=== PATIENT | female | born 1970 | race Caucasian/White ===

== ENCOUNTER 2017-03-16 12:48 | Emergency (ER) | payer BC ==
[2017-03-16 12:48] VITALS: BMI 26.6
[2017-03-16 14:16] VITALS: PULSE 75; RESP 20; TEMP 98; O2SAT 99
--- NOTE | 2017-03-16 14:30 | ED PDOC ---
Arrival/HPI - General Historian: Patient - History of Present Illness Time/Duration: > week (2-3) - General Chief Complaint: Abnormal Skin Integrity Time Seen by Provider: 03/16/17 14:01 - History of Present Illness Narrative History of Present Illness (Text): 03/16/17 14:33 47-year-old female presents today with a rash the past 2 weeks. Patient states the rash started on the back and has spread to the abdomen and lower legs. She denies fevers or chills. She is complaining of pruritus. Denies dizziness or weakness. No medications have been taken for pain at home. Patient denies any other family members with similar symptoms. No vomiting or diarrhea. Denies pain. No other complaints (Janie Claros) Past Medical History - Provider Review Nursing Documentation Reviewed: Yes - Travel History Have you recently traveled outside [place] w/in the past 3 mons?: No - Infectious Disease Hx of Infectious Diseases: None - Tetanus Immunization Tetanus Immunization: Unknown - Reproductive Menopause: No - Past Medical History Past Medical History: No Previous - Pulmonary Hx Bronchitis: Yes - Psychiatric Hx Depression: No Hx Emotional Abuse: No Hx Physical Abuse: No Hx Substance Use: No - Surgical History Hx Orthopedic Surgery: Yes (MOR IN RIGHT LEG) Other/Comment: back fusion, right shoulder repair - Anesthesia Hx Anesthesia: Yes Hx Anesthesia Reactions: No Hx Malignant Hyperthermia: No - Suicidal Assessment Feels Threatened In Home Enviroment: No Family/Social History - Physician Review Nursing Documentation Reviewed: Yes Family/Social History: Unknown Family HX Smoking Status: Current Some Days Smoker Hx Alcohol Use: Yes Frequency of alcohol use: Few days per week Hx Substance Use: No Hx Substance Use Treatment: No Allergies/Home Meds Allergies/Adverse Reactions: Allergies aspirin Adverse Reaction (Verified 03/16/17 13:14) RASH ibuprofen [From Motrin] Adverse Reaction (Verified 03/16/17 13:14) RASH Home Medications: Home Meds Medication Instructions Recorded Confirmed Breathing Inhaler 1 puff INH BID PRN 03/16/17 03/16/17 Review of Systems - Review of Systems Constitutional: absent: Fatigue, Fevers Respiratory: absent: SOB, Cough Cardiovascular: absent: Chest Pain, Palpitations Gastrointestinal: absent: Abdominal Pain, Nausea, Vomiting Genitourinary Female: absent: Dysuria Musculoskeletal: absent: Arthralgias, Back Pain, Neck Pain Skin: Rash, Pruritis Neurological: absent: Headache, Dizziness Psychiatric: absent: Anxiety, Depression Physical Exam Vital Signs Reviewed: Yes Temperature: Afebrile Blood Pressure: Normal Pulse: Regular Respiratory Rate: Normal Appearance: Positive for: Well-Appearing, Non-Toxic, Comfortable Pain Distress: None Mental Status: Positive for: Alert and Oriented X 3 - Systems Exam Head: Present: Atraumatic Mouth: Present: Moist Mucous Membranes Neck: Present: Normal Range of Motion Respiratory/Chest: Present: Clear to Auscultation, Good Air Exchange. No: Respiratory Distress, Accessory Muscle Use Cardiovascular: Present: Regular Rate and Rhythm, Normal S1, S2. No: Murmurs Abdomen: No: Tenderness Upper Extremity: Present: Normal ROM Lower Extremity: Present: Normal ROM Neurological: Present: GCS=15, Speech Normal Skin: Present: Warm, Dry, Rashes (Multiple erythematous scaly plaques on the arms posterior elbows, lower back, abdomen and bilateral lower legs), Normal Color Psychiatric: Present: Alert, Oriented x 3 Medical Decision Making ED Course and Treatment: 03/16/17 14:35 Patient is nontoxic well-appearing in no distress with stable vital signs no angioedema. Lungs are clear to auscultation bilaterally there is no wheezing noted. The airway is patent Benadryl Prednisone Pepcid Patient reassessment: After medications patient is feeling better after medications. Advised patient of my concern for psoriasis. Advised to follow-up with motor coach chauffeur as soon as possible. I advised taking Benadryl every 6 hours as needed for itch as well as prednisone daily x4 days. Advised patient to follow up with primary care physician within the next 2 days and return if symptoms worsen persist or if new symptoms develop Patient verbalizes understanding of discharge instructions and need for immediate followup. all aspects of this case were discussed the attending of record. Impression : Rash Benadryl every 6 hours as needed for itch Prednisone once daily x4 days Pepcid one tablet daily Follow up with the primary care physician within the next 2 days Follow up with the Belt Sander within the next 2 days. Return if symptoms worsen persist or if new symptoms develop: Shortness of breath, feeling of throat closing, difficulty speaking or any other concerning symptoms develop (Janie Claros) - Medication Orders Current Medication Orders: Discontinued Medications Diphenhydramine HCl (Benadryl) 25 mg PO ONCE ONE Stop: 03/16/17 14:02 Last Admin: 03/16/17 14:13 Dose: 25 mg Famotidine (Pepcid) 20 mg PO STAT STA Stop: 03/16/17 14:02 Last Admin: 03/16/17 14:15 Dose: 20 mg Prednisone (Prednisone Tab) 60 mg PO STAT ONE Stop: 03/16/17 14:02 Last Admin: 03/16/17 14:15 Dose: 60 mg Disposition/Present on Arrival - Present on Arrival Any Indicators Present on Arrival: No History of DVT/PE: No History of Uncontrolled Diabetes: No Urinary Catheter: No History of Decub. Ulcer: No History Surgical Site Infection Following: None - Disposition Have Diagnosis and Disposition been Completed?: Yes Disposition Time: 14:10 Patient Plan: Discharge - Disposition Diagnosis: Rash Disposition: HOME/ ROUTINE Condition: GOOD Discharge Instructions (ExitCare): Acute Rash (ED) Additional Instructions: Benadryl every 6 hours as needed for itch Prednisone once daily x4 days Pepcid one tablet daily Follow up with the primary care physician within the next 2 days Follow up with the Belt Sander within the next 2 days. Return if symptoms worsen persist or if new symptoms develop: Shortness of breath, feeling of throat closing, difficulty speaking or any other concerning symptoms develop Prescriptions: DiphenhydrAMINE [Benadryl] 25 mg PO Q6H #20 cap Famotidine [Pepcid] 20 mg PO DAILY #30 tab predniSONE [predniSONE Tab] 3 tab PO DAILY #12 tab Referrals: Arie Shaw MD [Staff Provider] - Follow up with primary Barbara Raygoza MD [Staff Provider] - Follow up with primary Destiney Doss MD [Staff Provider] - Follow up with primary Forms: [employer] [facility] (Filipino), WORK NOTE
[2017-03-16 14:39] VITALS: BP 118/53
== END 2017-03-16 14:39 | disposition home or self-care (01) ==
LOC: ED 12:48
DX: R21 Rash and other nonspecific skin eruption (principal)